=== PATIENT | male | born 1985 | race Two or more races ===

== ENCOUNTER 2016-12-10 21:19 | Emergency (ER) | payer SELFPAY ==
[~2016-12-10] VITALS: Ht 167.6 cm; Wt 77.0 kg
[2016-12-10] MEDS ORDERED: ASPIRIN 81MG TABLET PO STA (21:39)
[2016-12-10] MEDS ORDERED: MORPHINE SULFATE 4 MG/ML CPJ (NOT FOR IM USE) IV STA (21:39)
[2016-12-10] MEDS ORDERED: ONDANSETRON HCL 4MG/2ML VIAL IV STA (21:39)
[2016-12-10] MEDS ORDERED: SODIUM CHLORIDE 0.9% 500 ML IV ONE (21:39)
[2016-12-10 22:22] LABS: BASOPHILS % 0.6 % (0.0-2.0); EOSINOPHILS % 1.6 % (0.0-5.0); HEMATOCRIT. 45.5 % (42.0-52.0); HEMOGLOBIN. 16.1 g/dL (14.0-18.0); LYMPHOCYTES % 28.8 % (20.0-50.0); MEAN CORPUSCULAR HEMOGLOBIN 32.3 pg (28.0-32.0); MEAN CORPUSCULAR VOLUME 91.5 fL (80.0-94.0); MEAN PLATELET VOLUME 11.9 fl (7.4-10.4); MONOCYTES % 6.4 % (2.0-8.0); NEUTROPHILS % 62.6 % (40.0-76.0); PLATELET 127 x1000/uL (130-400); RED BLOOD CELL COUNT 4.97 mill/uL (4.7-6.1); RED CELL DISTRIBUTION WIDTH 13.2 % (11.6-14.6)
[2016-12-10 22:31] LABS: INR 1.3; PARTIAL THROMBOPLASTIN TIME 48.8 sec (24.0-34.0); PROTHROMBIN TIME 13.4 sec
[2016-12-10 22:38] LABS: CARBON DIOXIDE 28 mEq/L (21-32); CHLORIDE 106 mEq/L (98-107); TROPONIN I 0.19 ng/mL (0.00-0.04)
[2016-12-10 23:59] VITALS: BP 145/85
== END 2016-12-11 01:07 | disposition short-term general hospital (02) ==
LOC: ER 22:38 → CANBEDREQ 12-11 02:27
DX: R07.2 Precordial pain (principal); I24.9 Acute ischemic heart disease, unspecified; Z95.0 Presence of cardiac pacemaker
CPT/HCPCS: 36415; 71010; 80053; 83690; 84484; 85025; 85610; 85730; 93005; 96361; 96374; 96375; 99285; J2270; J2405; J7040; Z7610